=== PATIENT | female | born 1960 | race Caucasian/White ===

== ENCOUNTER 2016-11-06 09:06 | Emergency (ER) | payer BC ==
--- NOTE | 2016-11-06 09:16 | UC ---
Cardiac HPI - HPI Summary HPI Summary: 56 YEAR OLD FEMALE PRESENTS WITH COMPLAINS OF LEFT SIDED CHEST PAIN. I WILL SEND HER TO THE ER. - History of Current Complaint Stated Complaint: CHEST PAIN Time Seen by Provider: 11/06/16 09:14 Hx Obtained From: Patient Onset/Duration: Sudden Onset Initial Severity: Moderate Current Severity: Moderate Chest Pain Location: Left Anterior Character: Fast - Allergy/Home Medications Allergies/Adverse Reactions: Allergies Allergy/AdvReac Type Severity Reaction Status Date / Time No Known Allergies Allergy Verified 11/06/16 09:21 Home Medications: Home Medications Ciclesonide 160 MG MDI (NF) [Alvesco 160 MDI (NF)] 2 puff INH DAILY 11/06/16 [ History Confirmed 11/06/16] Ibuprofen [Advil] 400 mg PO Q6HR PRN 11/06/16 [History Confirmed 11/06/16] Levocetirizine Dihydrochloride [Xyzal Allergy 24Hr] 1 tab PO DAILY 11/06/16 [ History Confirmed 11/06/16] PMH/Surg Hx/FS Hx/Imm Hx Previously Healthy: Yes Review of Systems Constitutional: Negative Skin: Negative Eyes: Negative ENT: Negative Respiratory: Negative Cardiovascular: Chest Pain Gastrointestinal: Negative Genitourinary: Negative Motor: Negative Neurovascular: Negative Musculoskeletal: Negative Neurological: Negative Psychological: Negative All Other Systems Reviewed And Are Negative: Yes Physical Exam Triage Information Reviewed: Yes Eye Exam: Normal ENT Exam: Normal Dental Exam: Normal Neck exam: Normal Neck: Positive: 1 Respiratory Exam: Normal Cardiovascular Exam: Normal Abdominal Exam: Normal Musculoskeletal Exam: Normal Neurological Exam: Normal Psychological Exam: Normal Skin Exam: Normal - Clinical Impression Provider Diagnoses: CHEST PAIN Discharge - Discharge Plan Condition: Guarded Disposition: AGAINST MEDICAL ADVICE Patient Education Materials: Chest Pain (ED) Referrals: Suzanna Noriega MD [Primary Care Provider] - Additional Instructions: EMS REFUSED FOR CHEST PAIN. FRANCOIS
[2016-11-06 09:21] VITALS: BP 155/72
== END 2016-11-06 09:34 | disposition left against medical advice (07) ==
LOC: UCEAST 09:06
DX: R07.9 Chest pain, unspecified (principal)
CPT/HCPCS: 93005; 99212; G0463

== ENCOUNTER 2016-11-06 10:02 | Emergency (ER) | payer BC ==
[2016-11-06 12:19] LABS: Hematocrit 46 % (35-47); Hemoglobin 15.2 g/dl (12.0-16.0); Mean Corpuscular HGB Conc 33 g/dl (31-36); Mean Corpuscular Hemoglobin 30 pg (27-31); Mean Corpuscular Volume 91 fL (80-97); Mean Platelet Volume 9 um3 (7.4-10.4); Red Blood Count 5.06 10^6/ul (4.0-5.4); Red Cell Distribution Width 15 % (10.5-15); White Blood Count 7.6 10^3/ul (3.5-10.8)
[2016-11-06 12:32] LABS: Albumin 4.9 g/dL (3.2-5.2); BUN/Creatinine Ratio 17.2 (8-20); EGFR African American 123.9 (>60); EGFR Non-African American 96.3 (>60); Globulin 3.5 g/dL (2-4); Total Bilirubin 0.5 mg/dL (0.2-1.0); Total Protein 8.4 g/dL (6.4-8.9)
--- NOTE | 2016-11-06 12:33 | RAD ---
HISTORY: Chest pain COMPARISONS: April 04, 2007 VIEWS: 4: Frontal dual-energy and lateral views of the chest. FINDINGS: CARDIOMEDIASTINAL SILHOUETTE: The cardiomediastinal silhouette is normal. JOSIANE: The josiane are normal. PLEURA: The costophrenic angles are sharp. No pleural abnormalities are noted. LUNG PARENCHYMA: The lungs are clear. ABDOMEN: The upper abdomen is clear. There is no subphrenic gas. BONES AND SOFT TISSUES: No bone or soft tissue abnormalities are noted. OTHER: None. IMPRESSION: NO ACTIVE CARDIOPULMONARY DISEASE.
[2016-11-06 14:10] VITALS: BP 130/68
== END 2016-11-06 16:23 | disposition left against medical advice (07) ==
LOC: ED 10:02
DX: R07.9 Chest pain, unspecified (principal); Z53.21 Procedure and treatment not carried out due to patient leaving prior to being seen by health care provider
CPT/HCPCS: 36415; 71020; 80053; 84484; 85025; 93005

== ENCOUNTER 2019-04-13 06:33 | Emergency (ER) | payer BC ==
--- NOTE | 2019-04-13 08:58 | ED ---
Lower Extremity - HPI Summary HPI Summary: This patient is a 58-year-old female who presents to the ED with a left ankle injury. Patient states she twisted the ankle in falling on the ice last evening. She has been unable to ambulate due to pain. There is ecchymosis to the medial ankle. Denies any numbness or tingling. Denies any temperature changes. Patient states it is "aching" to the left lower leg. Denies any pain to the knee or to the toes. Unable to plantarflex or dorsiflex. - History of Current Complaint Chief Complaint: EDExtremityLower Stated Complaint: FALL PER PT Time Seen by Provider: 04/13/19 07:08 Hx Obtained From: Patient Mechanism Of Injury: Twisted Onset of Pain: Hours Onset/Duration: Hours Severity Initially: Mild Severity Currently: Mild Pain Intensity: 6 Pain Scale Used: 0-10 Numeric Timing: Constant Location: Is Discrete @ - left ankle (medial) Character Of Pain: Aching Associated Signs And Symptoms: Positive: Bruising. Negative: Swelling, Redness Alleviating Factor(s): Rest Able to Bear Weight: No - Risk Factors Gout Risk Factors: Negative DVT Risk Factors: Negative Septic Arthritis Risk Factor: Negative - Allergies/Home Medications Allergies/Adverse Reactions: Allergies Allergy/AdvReac Type Severity Reaction Status Date / Time MS Clarithromycin Allergy Hives Verified 04/13/19 06:37 [From Biaxin] PMH/Surg Hx/FS Hx/Imm Hx Previously Healthy: Yes Respiratory History: Reports: Hx Asthma - Immunization History Hx Pertussis Vaccination: No Immunizations Up to Date: Yes Infectious Disease History: No Infectious Disease History: Denies: Traveled Outside the [place] in Last 30 Days - Social History Occupation: Unemployed Lives: With Family Alcohol Use: Weekly Alcohol Amount: 1-2 drinks Hx Substance Use: No Substance Use Type: Reports: None Hx Tobacco Use: No Smoking Status (MU): Never Smoked Tobacco Review of Systems Negative: Fever, Chills, Fatigue, Skin Diaphoresis Negative: Palpitations, Chest Pain Negative: Shortness Of Breath, Cough Genitourinary: Negative Positive: no symptoms reported, see HPI Positive: Arthralgia - left ankle - medial Skin: Negative Neurological: Negative All Other Systems Reviewed And Are Negative: Yes Physical Exam Triage Information Reviewed: Yes Vital Signs On Initial Exam: Initial Vitals Temp Pulse Resp BP Pulse Ox 99.5 F 89 15 118/66 93 04/13/19 06:35 04/13/19 06:35 04/13/19 06:35 04/13/19 06:35 04/13/19 06:35 Vital Signs Reviewed: Yes Appearance: Positive: Well-Appearing, Well-Nourished Skin: Positive: Skin Color Reflects Adequate Perfusion, Other - ecchymosis to the medial ankle without tinting Head/Face: Positive: Normal Head/Face Inspection Eyes: Positive: EOMI, DARRELL, Conjunctiva Clear Neck: Positive: Supple, No Lymphadenopathy Respiratory/Lung Sounds: Positive: Clear to Auscultation, Breath Sounds Present Cardiovascular: Positive: RRR, Pulses are Symmetrical in both Upper and Lower Extremities Musculoskeletal: Positive: Pain @ - left ankle pain Neurological: Positive: Sensory/Motor Intact, Alert, Oriented to Person Place, Time, Speech Normal Psychiatric: Positive: Affect/Mood Appropriate AVPU Assessment: Alert Procedures - Sedation Patient Received Moderate/Deep Sedation with Procedure: No Diagnostics - Vital Signs Vital Signs Temp Pulse Resp BP Pulse Ox 04/13/19 06:35 99.5 F 89 15 118/66 93 - Laboratory Lab Statement: Any lab studies that have been ordered have been reviewed, and results considered in the medical decision making process. Lower Extremity Course/Dx - Course Course Of Treatment: Patient is evaluated for left lower extremity pain. There is pain directly over the medial ankle without pain to the lateral ankle. No pain on palpation to the left lower extremity otherwise. Unable to dorsiflex and plantar flex. She is able to flex and extend at the knee without discomfort. No pain to the hip or to the foot. Pain rated a 1/10 at rest. No hx of fractures. Took ibuprofen prior to arrival with good relief. X-ray obtained which shows oblique fracture of the distal fibula with widening of the mortise. There is medial displacement of the tibia with respect to the talus. Attempted to reduce and splinted with plaster. Patient tolerated well. She will follow-up with ortho next week. Non weight bearing. Crutches given. - Diagnoses Differential Diagnosis/HQI/PQRI: Positive: Fracture (Closed), Fracture (Open), Sprain, Strain Provider Diagnoses: Displaced oblique fracture of shaft of fibula Discharge ED - Sign-Out/Discharge Documenting (check all that apply): Patient Departure - Discharge Plan Condition: Stable Disposition: HOME Patient Education Materials: Ankle Fracture (ED) Referrals: Marta Palmer MD [Primary Care Provider] - Alvaro Guevara MD [Medical Doctor] - Additional Instructions: Ibuprofen 600mg three times daily Non weight bearing crutches for ambulation Call tomorrow for appt - Billing Disposition and Condition Condition: STABLE Disposition: Home
[2019-04-13 09:10] VITALS: BP 117/59
== END 2019-04-13 09:10 | disposition home or self-care (01) ==
LOC: ED 06:33
DX: S82.492A Other fracture of shaft of left fibula, initial encounter for closed fracture (principal); W00.0XXA Fall on same level due to ice and snow, initial encounter; Y92.9 Unspecified place or not applicable; J45.909 Unspecified asthma, uncomplicated; Z88.1 Allergy status to other antibiotic agents
CPT/HCPCS: 99282

== ENCOUNTER 2019-04-21 13:15 | Day surgery (SDC) | payer BC ==
[~2019-04-21 13:15] MED LIST: Buffered Lidocaine 1% SYRIN* 1 ML/SYRINGE INTRADERM ONE; Lactated Ringers 1000 ML Bag* 1,000 ML IV SCH
[2019-04-21] MEDS ORDERED: ceFAZolin 2 GM PREMIX in ORs 2 GM/50 ML BAG ONE (14:03)
[2019-04-21] MEDS ORDERED: Lidocaine 2% PF * 5 ML VIAL ONE (15:16)
[2019-04-21] MEDS ORDERED: Propofol* 10 MG/ML 20 ML BTL ONE (15:16)
[2019-04-21] MEDS ORDERED: Midazolam* 1 MG/ML 2 ML VIAL (2 MG) ONE (15:16)
[2019-04-21] MEDS ORDERED: fentaNYL* 50 MCG/ML 2 ML VIAL (100 MCG VIAL) ONE ×2 (15:17→17:14)
[2019-04-21] MEDS ORDERED: ROPIVACAINE 5 MG/ML 30 ML BTL (0.5%) ONE (15:17)
[2019-04-21] MEDS ORDERED: Dexmedetomidine* 200 MCG/2 ML 2 ML VIAL ONE (15:17)
[2019-04-21] MEDS ORDERED: Phenylephrine 40 MCG/ML SYRINGE ONE (16:34)
[2019-04-21] MEDS ORDERED: Ondansetron INJ* 2 MG/ML VIAL ONE ×3 (16:47→17:13)
[2019-04-21] MEDS ORDERED: Metoclopramide IV* 5 MG/ML 2 ML VIAL ONE (16:47)
[2019-04-21] MEDS ORDERED: Ketorolac INJ* 30 MG/ML 1 ML VIAL ONE ×2 (16:47→17:07)
[2019-04-21] MEDS ORDERED: Dexamethasone IV* 4 MG/ML 1 ML (4 MG) ONE ×3 (16:47→17:13)
[2019-04-21] MEDS ORDERED: DiMENhydriNATE IV* 50 MG/ML VIAL IV PUSH PRN (17:49)
[2019-04-21] MEDS ORDERED: PROCHLORPERAZINE INJ 5 MG/ML 2 ML VIAL IV PRN (17:49)
[2019-04-21] MEDS ORDERED: fentaNYL* 50 MCG/ML 2 ML VIAL (100 MCG VIAL) IV PRN (17:49)
[2019-04-21] MEDS ORDERED: oxyCODONE TAB* 5 MG TAB PO PRN (17:49)
[2019-04-21] MEDS ORDERED: HYDROmorphone INJ1* 1 MG/ML SYRINGE IV PRN (17:49)
[2019-04-21] MEDS ORDERED: Naloxone* 0.4 MG/ML 1 ML VIAL IV PRN (17:49)
[2019-04-21] MEDS ORDERED: oxyCODONE TAB* 5 MG TAB ONE (18:58)
[2019-04-21 19:58] VITALS: BP 128/78
--- NOTE | 2019-04-23 13:20 | OP ---
DATE OF OPERATION: 04/21/19 [facility] DATE OF : 62 SURGEON: Abe Kumar MD PROSECUTING ATTORNEY: ARMANDO Narvaez. A physician family readiness support assistant was required for the length of the procedure for assistance with patient positioning, retraction, instrumentation, and closure. ANESTHESIOLOGIST: Dr. Carmen Moreno ANESTHESIA: General anesthesia, regional block anesthesia. PRE-OP DIAGNOSES: 1. Left ankle lateral malleolus fracture, displaced, unstable. 2. Possible left ankle syndesmosis injury. POST-OP DIAGNOSIS: Left ankle lateral malleolus fracture, displaced, unstable. OPERATIVE PROCEDURE: Open reduction internal fixation of left ankle lateral malleolus fracture. ANTIBIOTICS: Ancef 2 g IV. IV FLUIDS: See anesthesia note. SKIN TO SKIN TIME: 59 minutes. TOURNIQUET TIME: 65 minutes, left thigh tourniquet, 300 mmHg. SPECIMEN: None. IMPLANTS: Synthes one third tubular plate,7 hole, with nonlocking and locking 3.5 mm screws. As well, there was a 3.5 mm cortical nonlocking screw placed using lag technique across the lateral malleolus fracture from posterior and inferior to anterior and superior or proximal. COMPLICATIONS: None. ESTIMATED BLOOD LOSS: Minimum. INDICATIONS FOR PROCEDURE: The patient is a 58-year-old woman, who injured herself 9 days preoperatively on 04/12/19 with a slip on the ice. The patient presented to the emergency department where she was noted to have a significantly displaced lateral malleolus fracture with incredible lateral talar translation and opening of the medial clear space. The patient was reduced in the emergency room and placed in a splint. I saw the patient in clinic and based on residual displacement at the fracture sites and the significant instability noted in the emergency department, I believe that surgery was indicated. The patient was converted to a cast. Skin check revealed some only minimal blisters away from the incision site planned. The patient elevated her ankle in anticipation of surgery. DESCRIPTION OF PROCEDURE: On preoperative holding the patient signed the written consent. Operative extremities marked in preoperative holding. The patient underwent some regional nerve blocks performed by anesthesia in the preoperative holding. The patient was taken back to the operating room and placed supine on the operative room table. Sedated and intubated. Tourniquet was placed about the left proximal thigh. Bone foam was placed under the left lower extremity. The cast had been removed in preoperative holding. The left lower extremity was prepped and draped. Surgical timeout was performed. Esmarch was applied and tourniquet was elevated. Skin incision, hockey-stick, standard lateral approach to the ankle was made. Carefully dissected down through subcutaneous tissue to fascial layer. Incised through this. Careful looking up for any branches of the superficial peroneal nerve. We did visualize this just anterior to our incision as well as its location at about 10 cm or just proximal to that proximal of the distal pole of the lateral malleolus, where it crossed the fibula. Identified fracture site and debrided it. Reduced it with the bone clamps. There were small flecks of comminution anteriorly and posteriorly, but I was able to visualize an anatomic reduction of the 2 major fracture fragments. I placed a screw from distal and posterior to proximal and anterior across the fracture site. I placed this using lag technique. Fully threaded 3.5 mm screw. This held the reduction nicely. I decided on a 7 hole one third tubular plate. I contoured it appropriately. I placed nonlocking screws one each proximal and distal to the fracture sites. C-arm radiographs demonstrated excellent reduction and excellent position of hardware. I placed several nonlocking screws proximal, distal, and then the remainder locking. I exchanged my distal most screw nonlocking to locking. I next performed stress testing of the syndesmosis. I obtained an external rotation stress view. There was no opening of the tibia fibular clear spaces or the medial clear space of the mortise. Likewise, when I performed a cotton test, I decided therefore no syndesmotic screw was required. Irrigation. Closure of the fascial layer with [id number] stitches using Vicryl 2.0 suture. We looked out for the superficial peroneal nerve. Closure of the subcutaneous tissue with buried simple stitches using Vicryl 3.0 suture. Closure of the skin with a running stitch using nylon 3.0 suture. Xeroform, 4x4's, ABD, sterile Webril, Webril, plaster splint using a posterior slab and then a sugar tong slab. Overwrapped with an Joel bandage. The cast hardened. Tourniquet was then dropped. The patient was awakened and extubated and transferred to the PACU. The patient was given Percocet as needed for pain control. Keflex for infection prophylaxis and aspirin for DVT prophylaxis. Nonweightbearing left lower extremity. Crutches or any other assist device. The patient will follow up with me in 10 to 14 days postoperatively. [id number]/[facility] #: [id number] DEE
== END 2019-04-21 19:30 | disposition home or self-care (01) ==
LOC: OR 13:15
PROVIDERS: ATTEND Orthopaedic Surgery
DX: S82.62XA Displaced fracture of lateral malleolus of left fibula, initial encounter for closed fracture (principal); M15.9 Polyosteoarthritis, unspecified; J45.20 Mild intermittent asthma, uncomplicated; R01.1 Cardiac murmur, unspecified; W00.0XXA Fall on same level due to ice and snow, initial encounter; Y93.89 Activity, other specified; Y92.89 Other specified places as the place of occurrence of the external cause; Z79.51 Long term (current) use of inhaled steroids; Z88.1 Allergy status to other antibiotic agents
CPT/HCPCS: 76000; A9270-GY; C1713; C1776; J0690; J1100; J1885; J2250; J2405; J2704; J2765; J2795; J3010